=== PATIENT | female | born 1935 ===

== ENCOUNTER 2017-02-23 06:13 | Day surgery (SDC) | payer MEDICARE, MEDICAID ==
[2017-02-16 09:15] VITALS: BMI 27.3
[2017-02-23] MEDS ORDERED: Propofol 10 mg/ml Inj (20 ML) ONE (09:35)
[2017-02-23] MEDS ORDERED: Bupivacaine-Epi 0.25%-1:200,000 PF Inj ONE (09:51)
[2017-02-23] MEDS ORDERED: Lidocaine 1% Inj (20ml) ONE (09:52)
[2017-02-23] MEDS ORDERED: HEPARIN-NS 5,000 UNITS/500 ML 5,000 UNIT/500 ML BAG IV ONE (09:52)
[2017-02-23] MEDS ORDERED: ceFAZolin IV 2 gm in Dextrose 1 GM/50 ML BAG IVPB ONE (09:52)
[2017-02-23] MEDS ORDERED: Sodium Chloride 0.9% 20 ML IV ONE (09:53)
[2017-02-23] MEDS ORDERED: Lactated Ringer's 1,000 ML IV ONE ×2 (10:05→13:27)
[2017-02-23] MEDS ORDERED: Succinylcholine Chloride 20 mg/ml Syr (5 ml) IV ONE (10:10)
[2017-02-23] MEDS ORDERED: Methylene Blue 10 mg/mL(10ml) IV ONE (11:31)
[2017-02-23] MEDS ORDERED: Bupivacaine HCl 0.5% PF (10 ml) Inj ONE (13:19)
[2017-02-23] MEDS ORDERED: Neostigmine Methylsulfate 3mg/3ml Syringe IV ONE (13:22)
--- NOTE | 2017-02-23 13:57 | MAM ---
PROCEDURE: RIGHT BREAST NEEDLE NEEDLE LOCALIZATION, MAMMOGRAPHIC GUIDED HISTORY: RIGHT BREAST NEEDLE LOCALIZATION COMPARISON: Posts ultrasound guided biopsy mammogram 01/24/2017 TECHNIQUE: At mammography, the patient's was given full discussion of risks and benefits of the procedure through a electro optics engineer and subsequent freely gave written consent. FINDINGS: Lateral approach was selected. Patient's placed under compression centering the lesion in question in the center of the created successfully with the surgical clip identified from prior biopsy. Maximum sterile barrier protection was provided to the patient with 1 percent lidocaine utilized for local anesthesia. Under mammographic guidance, the groupings utilized to deploy a a modified Kopan's needle wire into least and lesion in question within a loop move deploying the wire in good apparent position next to the biopsy clip. Post confirmation mammograms confirmed good placement of the wire. Patient tolerated this procedure well and no complications occurred. Post lumpectomy specimen reveals the wire and surgical clip in the center volume of the tissue with adequate margins provided. IMPRESSION: Status post successful right breast needle localization procedure with post lumpectomy specimen radiograph described as above.
--- NOTE | 2017-02-23 14:00 | PCM.SURG1 ---
Surgeon's Initial Post Op Note - Surgeon's Notes Surgeon: Dr. Miguel Strategic Analyst: Dr. Johnston PGY-3, Reji Mcclellan OMS-III Type of Anesthesia: General Endo, Local Pre-Operative Diagnosis: Right breast cancer Operative Findings: placement confirmed via C-arm Post-Operative Diagnosis: Right breast cancer Operation Performed: 1) Right breast partial mastectomy. 2) Right [place] lymph node biopsy. 3) Left IJ Portacath placement Specimen/Specimens Removed: right breast mass. right sentinel node Estimated Blood Loss: EBL {In ML}: 30 Blood Products Given: N/A Drains Used: No Drains Post-Op Condition: Good Date of Surgery/Procedure: 02/23/17 Time of Surgery/Procedure: 10:00
[2017-02-23] MEDS: HYDROmorphone 0.5 mg/0.5 ml ISec IVP PRN ×2 (14:10→14:30)
--- NOTE | 2017-02-23 15:31 | RAD ---
HISTORY: s/p L IJ permacath COMPARISON: Chest radiographs 02/02/2017. FINDINGS: LUNGS: Single frontal view the chest and submitted and reveals interval total left central venous port placement with tip terminating at the junction of the left brachycephalic vein with superior vena cava. No pneumothorax is identified bilaterally. No infiltrate bilaterally. Linear atelectasis identified in the medial left lung base as well as a hiatal hernia PLEURA: As above CARDIOVASCULAR: Stable cardiac silhouette is identified. OSSEOUS STRUCTURES: No significant abnormalities. VISUALIZED UPPER ABDOMEN: Normal. OTHER FINDINGS: None. IMPRESSION: Linear atelectasis or fibrosis in the medial left base with hiatal hernia evident. Status post left chest port placement as described above. No pneumothorax bilaterally.
[2017-02-23 15:55] VITALS: BP 185/92; PULSE 82; RESP 18; TEMP 97; O2SAT 100
--- NOTE | 2017-02-23 21:17 | OP ---
PROCEDURE DATE: 02/23/2017 PREOPERATIVE DIAGNOSIS: Right breast cancer. POSTOPERATIVE DIAGNOSIS: Right breast cancer of upper and outer quadrant. PROCEDURES DONE: 1. Preoperative needle localization and right partial mastectomy. 2. Axillary-sentinel lymph node biopsy. 3. Left IJ Port-A-Cath insertion. 4. Ultrasound-guided venous access. 5. Intraoperative fluoroscopy. SURGEON: Jamey Miguel MD ASSISTANTS: MARY Lopes and Marsha Johnston, PGY-3 resident. TYPE OF ANESTHESIA: General endotracheal tube anesthesia. ESTIMATED BLOOD LOSS: Around 40 mL for both procedures. COMPLICATIONS: None. DRAIN: None. INTRAOPERATIVE FINDINGS: The patient had 1.5 cm right breast tumor at 10 o'clock position and the patient had a negative axillary-sentinel lymph node biopsy and on ultrasound of the neck, the patient had a patent left IJ. On intraoperative steps, this is a 81-year-old female who was diagnosed with right breast cancer and the patient was seen by oncologist and sent for surgical evaluation and the patient was consented for preop needle localization and right breast lumpectomy and sentinel lymph node biopsy and Port-A-Cath insertion. DESCRIPTION OF PROCEDURE: The patient was brought to the OR, placed supine on operating table. After induction of anesthesia, first both neck was prepped and draped in the usual sterile fashion and under ultrasound guidance, the left IJ venous access was done. The guidewire was placed and the left infraclavicular incision was made to create the pouch and the catheter was tunneled from the pouch up to the left IJ insertion site. The catheter was introduced into the dilator sheath and the intraoperative fluoroscopy confirmation was done to check the site of the catheter position, and after that, the catheter was connected to the port. Port was accessed intraoperatively, was functioning without any blockage and after that, the wound was closed, subQ with 2-0 Vicryl, skin with 4-0 Monocryl and the left IJ incision site was also closed with 4-0 Monocryl and dry sterile dressing was applied. Now, the right breast was prepped and draped in the usual sterile fashion and methylene blue was injected and the right axillary incision was made and incision was deepened through the skin, subcutaneous tissue and the clavipectoral fascia and the sentinel lymph node was identified and sentinel lymph node was sent for the pathology. Intraoperative confirmation was taken for negative lymph nodes and now, a transverse incision was made on the right outer breast and incising skin and subcutaneous tissue, upper and lower flaps were created. Medial and lateral flaps were also created and dissection was carried down beyond the nipple and the dissection was carried down superiorly up to the clavicle, inferiorly dissection was carried down up to the costal margin and laterally to the pectoral muscles and the whole specimen of the right outer side of the breast was dissected free from the underlying pectoral fascia and it was sent off the table for the pathology. Intraoperative confirmation of the proper dissection of the breast lump with the needle was done. The axillary wound as well as breast wound was irrigated and both the wounds were closed in 2 layers, subQ with the 2-0 Vicryl, skin with the 4-0 Monocryl and dry sterile dressing was applied. The patient tolerated the procedure well. Count of the instruments and gauze was correct. There was no apparent complication. The patient was sent to the postanesthesia care unit in stable condition. Jamey Miguel MD MTDGavino
--- NOTE | 2017-02-25 09:24 | RAD ---
INTRAOPERATIVE FLUOROSCOPY: Intraoperative fluoroscopy was provided to the referring physician to assist in placement of MediPort catheter which is identified terminating in the distal superior vena cava and a solitary spot fluoroscopic image spine apparent left internal jugular approach. 115.1 seconds of fluoroscopy time was utilized with a with a cumulative radiation dose of 0.423 mGy. Please see operative report for further detail. IMPRESSION: Please see operative report further detail.
== END 2017-02-23 17:10 | disposition home or self-care (01) ==
LOC: C.SDS 06:13
PROVIDERS: ATTEND Surgery Surgical Critical Care
DX: C50.919 Malignant neoplasm of unspecified site of unspecified female breast (principal); C50.411 Malignant neoplasm of upper-outer quadrant of right female breast
CPT/HCPCS: 19281; 19301; 36561; 38525; 71010; 76937; 77001; 88305; 88307; 88331; C1769; C1788; J0690; J1100; J1170; J1644; J2001; J2405; J2704; J2710; J3010; J7040; J7120

== ENCOUNTER 2017-03-17 15:46 | Emergency (ER) | payer MEDICARE, MEDICAID ==
[2017-03-17 15:46] VITALS: BMI 27.3
[2017-03-17 15:58] VITALS: BP 145/79; PULSE 85; RESP 16; TEMP 99.4; O2SAT 97
--- NOTE | 2017-03-17 16:09 | C.PDOC ---
History Of Present Illness Patient is a 81 y/o F with hx of lumpectomy on 02/23 for breast cancer, who developed infection to wound site, started on antibiotics after I&D performed in Dr. Miguel's office yesterday presenting for dressing change. Patient was told by to come to ED daily for dressing changes by fixed income trading vice president until he evaluated patient again on Monday. Patient denies fever. Reports some localized pain to surgical site but denies new complaints. Time Seen by Provider: 03/17/17 16:00 Chief Complaint (Nursing): Abnormal Skin Integrity Past Medical History Vital Signs: Last Vital Signs Temp 99.4 F 03/17/17 15:54 Pulse 85 03/17/17 15:54 Resp 16 03/17/17 15:54 BP 145/79 03/17/17 15:54 Pulse Ox 97 03/17/17 16:10 - Medical History PMH: Arthritis, Asthma, COPD, Gall Bladder Disease, HTN Denies: Chronic Kidney Disease Surgical History: Cholecystectomy - [facility] Procedures LEFT HEART CARDIAC CATH (06/02/14) LT HEART ANGIOCARDIOGRAM (06/02/14) Family History: States: Unknown Family Hx - Social History Hx Tobacco Use: No Hx Alcohol Use: No Hx Substance Use: No - Immunization History Hx Tetanus Toxoid Vaccination: No Hx Influenza Vaccination: Yes Hx Pneumococcal Vaccination: Yes Review Of Systems Constitutional: Negative for: Fever, Chills Cardiovascular: Negative for: Chest Pain, Palpitations, Orthopnea, Edema, Light Headedness Respiratory: Negative for: Cough Gastrointestinal: Negative for: Nausea, Vomiting, Abdominal Pain, Constipation Genitourinary: Negative for: Dysuria Skin: Positive for: Other (wound to R breast) Neurological: Negative for: Weakness, Numbness, Altered Mental Status, Headache Physical Exam - Physical Exam Appears: Well, Non-toxic, No Acute Distress Skin: Normal Color, Warm, Dry Head: Atraumatic, Normacephalic Eye(s): bilateral: Normal Inspection, PERRL, EOMI Neck: Supple Chest: Other (surgical dressing to R breast, wound with packing with clean edges ) Cardiovascular: Rhythm Regular Respiratory: Normal Breath Sounds Gastrointestinal/Abdominal: Soft, No Tenderness Extremity: Normal ROM ED Course And Treatment O2 Sat by Pulse Oximetry: 97 Medical Decision Making Medical Decision Making: Spoke to fixed income trading vice president who will do dressing change 4:30PM vice president planning changed dressing and taught patient how to change dressing. Will follow-up with surgeon. Disposition - Disposition Disposition: HOME/ ROUTINE Disposition Time: 16:31 Condition: GOOD Additional Instructions: Dressing needs to be changed daily. Follow-up with your surgeon on Monday morning. Take antibiotics as prescribed. Return to ED if condition worsens. Forms: [employer] (Icelandic) - Clinical Impression Clinical Impression: Dressing change or removal, surgical wound
== END 2017-03-17 16:57 | disposition home or self-care (01) ==
LOC: C.ER 15:46
DX: Z48.00 Encounter for change or removal of nonsurgical wound dressing (principal); I10 Essential (primary) hypertension; J44.9 Chronic obstructive pulmonary disease, unspecified

== ENCOUNTER 2017-06-02 08:38 | Inpatient (IN) | payer MEDICARE, MEDICAID ==
[2017-06-02 08:39] VITALS: BMI 27.3
--- NOTE | 2017-06-02 09:07 | C.PDOC ---
History Of Present Illness 81 year old female, with past medical history of breast CA on chemotherapy, presents to ED for evaluation of bloody stool since last night. Patient reports feeling lightheaded and generalized weakness. Patient admits to having decreased appetite this week. Denies abdominal pain, nausea, vomiting, rectal pain, shortness of breath, chest pain, or fever. Notes last chemo was on Monday. Oncology: Dr Kasper Time Seen by Provider: 06/02/17 08:56 Chief Complaint (Nursing): GI Problem History Per: Patient History/Exam Limitations: no limitations Onset/Duration Of Symptoms: Days (1) Current Symptoms Are (Timing): Still Present Number Of Bleeding Episodes: Unknown Severity: None Pain Scale Rating Of: 0 Associated Symptoms: Bloody Diarrhea, Lightheadedness. denies: Nausea, Vomiting , Hematemesis Modifying Factors: None Recent travel outside of the [place]: No Additional History Per: Patient Past Medical History Reviewed: Historical Data, Nursing Documentation, Vital Signs Vital Signs: Last Vital Signs Temp 98.5 F 06/02/17 12:51 Pulse 85 06/02/17 13:47 Resp 18 06/02/17 13:47 BP 117/48 L 06/02/17 13:47 Pulse Ox 99 06/02/17 13:47 - Medical History PMH: Arthritis, Asthma, COPD, Gall Bladder Disease, HTN Denies: Chronic Kidney Disease Surgical History: Cholecystectomy - [facility] Procedures LEFT HEART CARDIAC CATH (06/02/14) LT HEART ANGIOCARDIOGRAM (06/02/14) Family History: States: Unknown Family Hx - Social History Hx Tobacco Use: No Hx Alcohol Use: No Hx Substance Use: No - Immunization History Hx Tetanus Toxoid Vaccination: (unk) Hx Influenza Vaccination: Yes (2017) Hx Pneumococcal Vaccination: Yes (2016) Review Of Systems Except As Marked, All Systems Reviewed And Found Negative. Constitutional: Positive for: Weakness. Negative for: Fever, Chills Cardiovascular: Positive for: Light Headedness. Negative for: Chest Pain, Palpitations Respiratory: Negative for: Shortness of Breath Gastrointestinal: Positive for: Hematochezia. Negative for: Nausea, Vomiting, Abdominal Pain, Hematemesis, Rectal Pain Genitourinary: Negative for: Dysuria, Frequency Musculoskeletal: Negative for: Back Pain Neurological: Negative for: Headache, Dizziness Physical Exam - Physical Exam Appears: Non-toxic, No Acute Distress Skin: Normal Color, Warm, Dry Head: Atraumatic, Normacephalic Eye(s): bilateral: Normal Inspection Oral Mucosa: Moist Neck: Normal ROM, Supple Chest: Other (right partial mastectomy) Cardiovascular: Rhythm Regular, No Murmur Respiratory: Normal Breath Sounds, No Rales, No Rhonchi, No Wheezing Gastrointestinal/Abdominal: Soft, No Tenderness Rectal: Rectal Tone (normal), Heme Positive (bloody stool), No Hemorrhoids, No Mass, No Tenderness Back: No CVA Tenderness Extremity: Normal ROM, No Deformity, No Swelling Pulses: Left Radial: Normal Neurological/Psych: Oriented x3, Normal Speech ED Course And Treatment - Laboratory Results Result Diagrams: 06/02/17 09:32 06/02/17 09:32 Lab Interpretation: No Acute Changes ECG: Interpreted By Me, Viewed By Me ECG Rhythm: Sinus Rhythm ECG Interpretation: No Acute Changes Interpretation Of ECG: NS at 90 bpm with LAD and twave abnormality Rate From EC O2 Sat by Pulse Oximetry: 99 Pulse Ox Interpretation: Normal Medical Decision Making Medical Decision Making: Impression: GI bleed Plan: * EKG * Chest x-ray * Blood work * Urinalysis * Protonix Progress: EKG NS at 90 bpm with LAD, Twave abnormality nonspecific Labs reviewed, Hgb is low and no priors to compare. 10:12 Called and spoke with Dr Braga to discuss case and lab findings. He states her Hgb is usually normal, last result 01/03/17 Hgb was 10.8. He wants patient admitted and to order 1PRBC for transfusion Disposition - Disposition Disposition: HOSPITALIZED Disposition Time: 10:14 Condition: FAIR - POA Present On Arrival: None - Clinical Impression Clinical Impression: GI (gastrointestinal bleed) - PA / FARM EQUIPMENT MECHANIC APPRENTICE / Resident Statement MD/DO has reviewed & agrees with the documentation as recorded. - Scribe Statement The provider has reviewed the documentation as recorded by the Scribe Antonio Bryant All medical record entries made by the Yolandaibkim were at my direction and personally dictated by me. I have reviewed the chart and agree that the record accurately reflects my personal performance of the history, physical exam, medical decision making, and the department course for this patient. I have also personally directed, reviewed, and agree with the discharge instructions and disposition. Decision To Admit - Pt Status Changed To: Hospital Disposition Of: Inpatient - Admit Certification Admit to Inpatient:: After my assessment, the patient will require hospitalization for at least two midnights. This is because of the severity of symptoms shown, intensity of services needed, and/or the medical risk in this patient being treated as an outpatient. - InPatient: Physician Admission Certification: I certify that this patient requires 2 or more midnights of care for the following reason:: Patient with active GI bleed and low hgb. Patient will need transfusion and GI consult - . Bed Request Type: Telemetry Admitting Physician: Clyde Braga Patient Diagnosis: GI (gastrointestinal bleed)
[2017-06-02] MEDS ORDERED: Lactated Ringer's 1,000 ML IV STA (09:09)
[2017-06-02] MEDS ORDERED: Pantoprazole 80 MG in Sodium Chloride 0.9% 100 ML IV STA (09:09)
[2017-06-02 09:38] LABS: BASO % 0.5 % (0.0-2.0); EOS % 0.7 % (0.0-4.0); HEMATOCRIT 23.1 % (34.0-47.0); LYMPH # 0.6 K/uL (1.0-4.3); LYMPH % 15.3 % (20.0-40.0); MEAN CORPUSCULAR HEMOGLOBIN 27.5 pg (27.0-31.0); MEAN CORPUSCULAR HGB CONC 33.6 g/dL (33.0-37.0); MEAN PLATELET VOLUME 8.3 fL (7.2-11.7); MONO # 0.1 K/uL (0.0-0.8); NRBC % 0.3 % (0.0-2.0); RED CELL DISTRIBUTION WIDTH 15.6 % (11.5-14.5); WHITE BLOOD COUNT 3.9 K/uL (4.8-10.8)
[2017-06-02 09:44] LABS: INR 1.1
[2017-06-02 09:51] LABS: ALKALINE PHOSPHATASE 49 U/L (38-126); ALT/SGPT 33 U/L (9-52); AST/SGOT 16 U/L (14-36); BILIRUBIN,TOTAL 0.6 mg/dL (0.2-1.3); BLOOD UREA NITROGEN 11 mg/dL (7-17); CALCIUM 8.2 mg/dl (8.6-10.4); CARBON DIOXIDE 25 mmol/L (22-30); CHLORIDE 105 mmol/L (98-107); GFR AFRICAN-AMERICAN > 60; GLUCOSE,RANDOM 116 mg/dL (65-105); POTASSIUM 3.3 mmol/L (3.6-5.2); SODIUM 141 mmol/L (132-148); TOTAL PROTEIN 6.1 g/dL (6.3-8.3)
[2017-06-02 09:54] LABS: RBC URINE < 1 /hpf (0-3); URINE BACTERIA RARE (<OCC); URINE BILIRUBIN NEGATIVE (NEGATIVE); URINE BLOOD NEGATIVE (NEGATIVE); URINE COLOR Yellow (YELLOW); URINE GLUCOSE (UA) NORMAL (Normal); URINE KETONE NEGATIVE (NEGATIVE); URINE LEUKOCYTE ESTERASE TRACE Leu/uL (Negative); URINE PROTEIN NEGATIVE (NEGATIVE); URINE UROBILINOGEN NORMAL mg/dL (0.2-1.0); WBC URINE 2 /hpf (0-5)
[2017-06-02 09:57] LABS: ALB/GLOB RATIO 1.4 (1.0-2.1)
--- NOTE | 2017-06-02 10:07 | RAD ---
PROCEDURE: CHEST RADIOGRAPH, 1 VIEW HISTORY: GI Bleeding COMPARISON: 02/23/2017. FINDINGS: The left-sided MediPort terminates in the SVC. LUNGS: The lungs are well inflated and clear. PLEURA: No pneumothorax or pleural fluid seen. CARDIOVASCULAR: The cardiomediastinal silhouette is stable. OSSEOUS STRUCTURES: No significant abnormalities. VISUALIZED UPPER ABDOMEN: Normal. OTHER FINDINGS: None. IMPRESSION: No acute findings.
[2017-06-02] MEDS ORDERED: Potassium Chloride 20 mEq ER Tab PO STA (11:51)
[2017-06-02] MEDS ORDERED: Potassium Chloride 20 mEq ER Tab PO ONE (11:56)
[2017-06-02 12:06] LABS: CARCINOEMBRYONIC ANTIGEN 2.6 ng/mL (0-3.0)
[2017-06-02 12:10] LABS: CA 19-9 < 1.4 U/mL (0-37)
[2017-06-02] MEDS ORDERED: Dextrose 5%/0.45% NS 1,000 ML IV ONE (12:22)
[2017-06-02] MEDS: Dextrose 5%/0.45% NS 1,000 ML IV SCH (12:30)
[2017-06-02] MEDS ORDERED: Peg-Electrolyte Oral Soln 4L (Golytely) PO ONE (13:00)
[2017-06-02] MEDS ORDERED: Dorzolamide 2% Opht Sol 10ml OU SCH (14:00)
[2017-06-02] MEDS ORDERED: Albuterol 0.083% Inhal Sol (2.5 mg/3 mL) UD ONE (14:04)
[2017-06-02] MEDS: Albuterol 0.083% Inhal Sol (2.5 mg/3 mL) UD INH SCH ×2 (14:28→19:54)
[2017-06-02] MEDS ORDERED: Bisacodyl 5mg EC Tab PO ONE (17:00)
[2017-06-02] MEDS ORDERED: Sodium Chloride 0.9% 1,000 ML IV SCH (19:30)
[2017-06-02] MEDS: Fluticasone-Salmeterol 250-50mcg Diskus IH SCH (19:54)
[2017-06-02 20:53] LABS: BASO % 0.6 % (0.0-2.0); EOS # 0.1 K/uL (0.0-0.7); EOS % 0.8 % (0.0-4.0); HEMATOCRIT 28.1 % (34.0-47.0); LYMPH # 1.2 K/uL (1.0-4.3); MEAN CELL VOLUME 82.1 fL (81.0-99.0); MEAN CORPUSCULAR HEMOGLOBIN 27.3 pg (27.0-31.0); MEAN CORPUSCULAR HGB CONC 33.2 g/dL (33.0-37.0); MEAN PLATELET VOLUME 8.5 fL (7.2-11.7); MONO # 0.2 K/uL (0.0-0.8); MONO % 3.4 % (0.0-10.0); NRBC % 0.2 % (0.0-2.0); RED CELL DISTRIBUTION WIDTH 15.2 % (11.5-14.5); WHITE BLOOD COUNT 6.3 K/uL (4.8-10.8)
--- NOTE | 2017-06-02 23:18 | CP.PCM.HP ---
History of Present Illness - History of Present Illness History of Present Illness: 81 year old female, with past medical history of breast CA on chemotherapy, presents to ED for evaluation of bloody stool since last night. Patient reports feeling lightheaded and generalized weakness. Patient admits to having decreased appetite this week. Denies abdominal pain, nausea, vomiting, rectal pain, shortness of breath, chest pain, or fever. Notes last chemo was on Monday. Past Patient History - Past Medical History & Family History Past Medical History?: Yes - Past Social History Smoking Status: Never Smoked - CARDIAC Hx Cardiac Disorders: Yes Hx Hypertension: Yes - PULMONARY Hx Respiratory Disorders: Yes Hx Asthma: Yes Hx Chronic Obstructive Pulmonary Disease (COPD): Yes - NEUROLOGICAL Hx Neurological Disorder: No - HEENT Hx HEENT Problems: Yes Hx Cataracts: Yes (BILAT IOL) Hx Glaucoma: Yes - RENAL Hx Chronic Kidney Disease: No - ENDOCRINE/METABOLIC Hx Endocrine Disorders: No - HEMATOLOGICAL/ONCOLOGICAL Hx Blood Disorders: No Hx Cancer: Yes (R breast Ca) - INTEGUMENTARY Hx Dermatological Problems: No - MUSCULOSKELETAL/RHEUMATOLOGICAL Hx Musculoskeletal Disorders: Yes Hx Arthritis: Yes Hx Falls: Yes (December 2016) - GASTROINTESTINAL Hx Gastrointestinal Disorders: Yes Hx Gall Bladder Disease: Yes - GENITOURINARY/GYNECOLOGICAL Hx Genitourinary Disorders: No - PSYCHIATRIC Hx Substance Use: No - SURGICAL HISTORY Hx Surgeries: Yes Hx Cholecystectomy: Yes - ANESTHESIA Hx Anesthesia: Yes Hx Anesthesia Reactions: No Hx Malignant Hyperthermia: No Meds Allergies/Adverse Reactions: Allergies Allergy/AdvReac Type Severity Reaction Status Date / Time aspirin Allergy Intermediate RASH Verified 06/02/17 08:47 Results - Vital Signs Recent Vital Signs: Last Vital Signs Temp 98.6 F 06/02/17 15:28 Pulse 92 H 06/02/17 15:28 Resp 20 06/02/17 15:28 BP 130/66 06/02/17 15:28 Pulse Ox 99 06/02/17 15:28 - Labs Result Diagrams: 06/02/17 20:45 06/02/17 09:32 Labs: Laboratory Results - last 24 hr 06/02/17 06/02/17 06/02/17 09:32 09:32 09:32 WBC 3.9 L RBC 2.82 L Hgb 7.8 L Hct 23.1 L MCV 82.0 MCH 27.5 MCHC 33.6 RDW 15.6 H Plt Count 235 MPV 8.3 Neut % (Auto) 80.5 H Lymph % (Auto) 15.3 L Ralls % (Auto) 3.0 Eos % (Auto) 0.7 Baso % (Auto) 0.5 Neut # 3.1 Lymph # 0.6 L Ralls # 0.1 Eos # 0.0 Baso # 0.0 PT 12.2 INR 1.1 APTT 27 Sodium Potassium Chloride Carbon Dioxide Anion Gap BUN Creatinine Est GFR ( Amer) Est GFR (Non-Af Amer) Random Glucose Calcium Total Bilirubin AST ALT Alkaline Phosphatase Total Protein Albumin Globulin Albumin/Globulin Ratio Carcinoembryonic Ag CA 19-9 Antigen CA 125 Antigen Urine Color Urine Clarity Urine pH Ur Specific [place] Urine Protein Urine Glucose (UA) Urine Ketones Urine Blood Urine Nitrate Urine Bilirubin Urine Urobilinogen Ur Leukocyte Esterase Urine WBC (Auto) Urine RBC (Auto) Ur Squamous Epith Cells Urine Bacteria Stool Occult Blood Positive H Blood Type Blood Type Confirm Antibody Screen 06/02/17 06/02/17 06/02/17 09:32 09:42 10:27 WBC RBC Hgb Hct MCV MCH MCHC RDW Plt Count MPV Neut % (Auto) Lymph % (Auto) Ralls % (Auto) Eos % (Auto) Baso % (Auto) Neut # Lymph # Ralls # Eos # Baso # PT INR APTT Sodium 141 Potassium 3.3 L Chloride 105 Carbon Dioxide 25 Anion Gap 14 BUN 11 Creatinine 0.5 L Est GFR ( Amer) > 60 Est GFR (Non-Af Amer) > 60 Random Glucose 116 H Calcium 8.2 L Total Bilirubin 0.6 AST 16 ALT 33 Alkaline Phosphatase 49 Total Protein 6.1 L Albumin 3.6 Globulin 2.5 Albumin/Globulin Ratio 1.4 Carcinoembryonic Ag CA 19-9 Antigen CA 125 Antigen Urine Color Yellow Urine Clarity Clear Urine pH 7.0 Ur Specific [place] 1.013 Urine Protein Negative Urine Glucose (UA) Normal Urine Ketones Negative Urine Blood Negative Urine Nitrate Negative Urine Bilirubin Negative Urine Urobilinogen Normal Ur Leukocyte Esterase Trace Urine WBC (Auto) 2 Urine RBC (Auto) < 1 Ur Squamous Epith Cells 3 Urine Bacteria Rare Stool Occult Blood Blood Type A POSITIVE Blood Type Confirm A POSITIVE Antibody Screen Negative 06/02/17 06/02/17 11:16 20:45 WBC 6.3 D RBC 3.42 L Hgb 9.3 L Hct 28.1 L MCV 82.1 MCH 27.3 MCHC 33.2 RDW 15.2 H Plt Count 261 MPV 8.5 Neut % (Auto) 76.2 H Lymph % (Auto) 19.0 L Ralls % (Auto) 3.4 Eos % (Auto) 0.8 Baso % (Auto) 0.6 Neut # 4.8 Lymph # 1.2 Ralls # 0.2 Eos # 0.1 Baso # 0.0 PT INR APTT Sodium Potassium Chloride Carbon Dioxide Anion Gap BUN Creatinine Est GFR ( Amer) Est GFR (Non-Af Amer) Random Glucose Calcium Total Bilirubin AST ALT Alkaline Phosphatase Total Protein Albumin Globulin Albumin/Globulin Ratio Carcinoembryonic Ag 2.6 CA 19-9 Antigen < 1.4 CA 125 Antigen < 5.5 Urine Color Urine Clarity Urine pH Ur Specific [place] Urine Protein Urine Glucose (UA) Urine Ketones Urine Blood Urine Nitrate Urine Bilirubin Urine Urobilinogen Ur Leukocyte Esterase Urine WBC (Auto) Urine RBC (Auto) Ur Squamous Epith Cells Urine Bacteria Stool Occult Blood Blood Type Blood Type Confirm Antibody Screen
[2017-06-03] MEDS: Dextrose 5%/0.45% NS 1,000 ML IV SCH ×2 (01:03→15:30)
[2017-06-03] MEDS: Albuterol 0.083% Inhal Sol (2.5 mg/3 mL) UD INH SCH ×4 (01:38→19:32)
--- NOTE | 2017-06-03 04:30 | CON ---
DATE: 06/02/2017 HISTORY OF PRESENT ILLNESS: This is a 81-year-old female seen and examined on 06/02/2017 in the Emergency Room as requested by the admitting medical team. The entire chart is reviewed including but not limited to the most recent lab and radiology study results, current and the previous medication list, current and the previous medical events, allergy to medication list as well as all the available current and the previous medical records. Case discussed at length with the staff in the Emergency Room. This is a 81-year-old female who was admitted to the hospital through the Emergency Room with the main complaint of generalized weakness and fatigue, lightheaded, loss of appetite with a recent positive weight loss with recurrent episodes of rectal bleeding. No hematemesis. Patient also admitted recurrent episodes of bloody diarrhea recently without hematemesis, but again nausea with dyspepsia. PAST MEDICAL HISTORY: Including, but not limited to: 1. Osteoarthritis. 2. COPD. 3. Hypertension. 4. Peptic ulcer disease. 5. Status post cholecystectomy. FAMILY HISTORY: Noncontributory. SOCIAL HISTORY: No reported history of cigarette smoking or alcohol intake. CURRENT MEDICATIONS: Medication lists were reviewed. ALLERGIES TO MEDICATION: UNCLEAR. After being admitted to the hospital, patient was found to have initially low hemoglobin at 7.8, hematocrit 23.1 with low white blood cells of 3.9, but normal platelet count with low potassium 3.3 and increased blood glucose level at 116. PHYSICAL EXAMINATION: GENERAL: A 81-year-old female, Bulgarian spoken, seen also with a college athletic director. VITAL SIGNS: Afebrile with pulse of 100, respiratory 20 to 22, blood pressure 150/78. HEENT: Showed pale, dry oral mucous membrane. Nonicteric sclerae. LYMPH NODES: No lymphadenitis or lymphadenopathy. LUNGS: Few scattered mild crepitation with few rales bilaterally and slight decreased air entry at bases. HEART: Positive S1 and S2 with increased rate. ABDOMEN: Soft with mild distention and mild generalized tenderness. No mass or organomegaly. No rebound tenderness or guarding. RECTAL: Positive stool with trace of old and fresh blood. EXTREMITIES: Without significant clubbing, cyanosis, or edema, but evidence of osteoarthritis. NEUROLOGIC: No reported new neurological deficits, sensory or motor. IMPRESSION: 1. Gastrointestinal bleeding, upper versus lower. 2. To rule out occult gastrointestinal malignancy. 3. Anemia, most likely secondary to above. 4. Known history of but not limited to chronic obstructive pulmonary disease, osteoarthritis, hypertension who is status post cholecystectomy. 5. Electrolyte imbalance with hypokalemia. SUGGESTIONS: 1. Agree with your plan. 2. Correct any underlying electrolyte imbalance. 3. Blood transfusion to keep hemoglobin around 10 gm percent. 4. Correct any underlying possible coagulopathy. 5. Proton pump inhibitors IV. 6. Surgical consultation. 7. Sectional abdominal and pelvic CAT scan. 8. Endoscopic evaluation of the GI tract after adequate preparation when the patient is more stable clinically. Thank you for letting me participate in your patient's case management. Further recommendation to follow post upper and lower endoscopy. Mookie Franks MD
[2017-06-03 07:05] LABS: HEMATOCRIT 26.4 % (34.0-47.0); MEAN CELL VOLUME 81.7 fL (81.0-99.0); MEAN CORPUSCULAR HEMOGLOBIN 27.9 pg (27.0-31.0); MEAN CORPUSCULAR HGB CONC 34.2 g/dL (33.0-37.0); MEAN PLATELET VOLUME 8.2 fL (7.2-11.7); RED CELL DISTRIBUTION WIDTH 15.4 % (11.5-14.5); WHITE BLOOD COUNT 4.4 K/uL (4.8-10.8)
[2017-06-03] MEDS ORDERED: Lactated Ringer's 500 ML IV ONE ×4 (07:12→08:00)
[2017-06-03] MEDS ORDERED: Propofol 10 mg/ml Inj (20 ML) ONE (07:40)
[2017-06-03] MEDS ORDERED: Etomidate 20 mg/10ml Inj IV ONE (07:40)
[2017-06-03] MEDS: Fluticasone-Salmeterol 250-50mcg Diskus IH SCH (07:45)
[2017-06-03] MEDS: metroNIDAZOLE IV 500 mg/100 ml 500 MG/100 ML BAG IVPB SCH ×3 (08:00→22:46)
[2017-06-03 09:11] VITALS: RESP 20
[2017-06-03] MEDS ORDERED: Dorzolamide 2% Opht Sol 10ml OU SCH (10:00)
[2017-06-03] MEDS: Brimonidine 0.2% Opth Sol (5ml) OU SCH (10:30)
[2017-06-03] MEDS: Dorzolamide 2% Opht Sol 10ml OU SCH ×2 (14:00→18:30)
[2017-06-03] MEDS: Sucralfate 1 gm/10 ml Oral Susp UD PO SCH (22:45)
[2017-06-04] MEDS: Albuterol 0.083% Inhal Sol (2.5 mg/3 mL) UD INH SCH ×4 (02:00→19:49)
[2017-06-04] MEDS: Dextrose 5%/0.45% NS 1,000 ML IV SCH ×3 (06:10→19:06)
[2017-06-04] MEDS: metroNIDAZOLE IV 500 mg/100 ml 500 MG/100 ML BAG IVPB SCH ×3 (06:13→21:31)
[2017-06-04] MEDS: Sucralfate 1 gm/10 ml Oral Susp UD PO SCH ×2 (06:32→21:31)
[2017-06-04] MEDS: Fluticasone-Salmeterol 250-50mcg Diskus IH SCH ×2 (08:52→19:49)
[2017-06-04 09:28] LABS: MEAN CELL VOLUME 81.9 fL (81.0-99.0); MEAN CORPUSCULAR HGB CONC 34.2 g/dL (33.0-37.0); MEAN PLATELET VOLUME 8.2 fL (7.2-11.7); RED CELL DISTRIBUTION WIDTH 15.4 % (11.5-14.5); WHITE BLOOD COUNT 4.7 K/uL (4.8-10.8)
[2017-06-04] MEDS: Brimonidine 0.2% Opth Sol (5ml) OU SCH (09:29)
[2017-06-04] MEDS ORDERED: Influenza Vaccine 60 mcg/0.5 mL SYR (4YR UP) IM ONE (10:00)
[2017-06-04 10:23] LABS: CALCIUM 8.1 mg/dl (8.6-10.4); CARBON DIOXIDE 28 mmol/L (22-30); CHLORIDE 107 mmol/L (98-107); GFR AFRICAN-AMERICAN > 60; GLUCOSE,RANDOM 109 mg/dL (65-105); SODIUM 142 mmol/L (132-148)
[2017-06-04 10:32] LABS: BLOOD UREA NITROGEN 4 mg/dL (7-17)
--- NOTE | 2017-06-04 11:24 | CP.PCM.PN ---
Subjective - Date & Time of Evaluation Date of Evaluation: 06/03/17 Time of Evaluation: 21:00 - Subjective Subjective: Pt is seen and examined at bedside Objective - Vital Signs/Intake and Output Vital Signs (last 24 hours): Temp Pulse Resp BP Pulse Ox 97.4 F L 83 20 130/73 96 06/04/17 09:03 06/04/17 09:03 06/04/17 09:03 06/04/17 09:03 06/04/17 09:03 Intake and Output: 06/04/17 06/04/17 06:59 18:59 Intake Total 800 Balance 800 - Medications Medications: Current Medications Albuterol Sulfate (Albuterol 0.083% Inhal Teena (2.5 Mg/3 Ml) Ud) 2.5 mg INH RQ6 [facility] Last Admin: 06/04/17 08:53 Dose: Not Given Brimonidine Tartrate (Alphagan 0.2% Opht) 0 ml OU DAILY [facility] Last Admin: 06/04/17 09:29 Dose: 1 drop Carvedilol (Coreg) 3.125 mg PO DAILY [facility] Last Admin: 06/04/17 09:29 Dose: 3.125 mg Dorzolamide HCl (Trusopt) 0 ml OU TID [facility] Last Admin: 06/03/17 18:30 Dose: Not Given Dextrose/Sodium Chloride (Dextrose 5%/0.45% Ns 1000 Ml) 1,000 mls @ 70 mls/hr IV .[id number] [facility] Last Admin: 06/04/17 06:10 Dose: Not Given Metronidazole (Flagyl) 500 mg in 100 mls @ 100 mls/hr IVPB Q8 [facility] Last Admin: 06/04/17 06:13 Dose: 100 mls/hr Losartan Potassium (Cozaar) 25 mg PO DAILY [facility] Last Admin: 06/04/17 09:30 Dose: 25 mg Metoclopramide HCl (Reglan) 5 mg IVP Q6 [facility] Last Admin: 06/04/17 06:12 Dose: 5 mg Pantoprazole Sodium (Protonix Inj) 40 mg IVP Q12H [facility] Last Admin: 06/04/17 09:28 Dose: 40 mg Fluticasone/Salmeterol (Advair Diskus 250/50) 1 puff IH RBID [facility] Last Admin: 06/04/17 08:52 Dose: 1 puff Sucralfate (Carafate Oral Susp) 1 gm PO ACBHS [facility] Last Admin: 06/04/17 06:32 Dose: 1 gm Timolol Maleate (Timoptic 0.5% Ophth Soln) 0 drop OU BID [facility] Last Admin: 06/04/17 09:29 Dose: 1 drop - Labs Labs: 06/04/17 09:17 06/04/17 09:17 PT 12.2 SECONDS (9.7-12.2) 06/02/17 09:32 INR 1.1 06/02/17 09:32 APTT 27 SECONDS (21-34) 06/02/17 09:32 - Constitutional Appears: No Acute Distress - Head Exam Head Exam: ATRAUMATIC, NORMAL INSPECTION, NORMOCEPHALIC - Eye Exam Eye Exam: EOMI, Normal appearance, PERRL Pupil Exam: NORMAL ACCOMODATION, PERRL - Respiratory Exam Respiratory Exam: Clear to Ausculation Bilateral, NORMAL BREATHING PATTERN - Cardiovascular Exam Cardiovascular Exam: REGULAR RHYTHM, +S1, +S2. absent: Murmur - GI/Abdominal Exam GI & Abdominal Exam: Soft, Normal Bowel Sounds. absent: Tenderness Assessment and Plan (1) GI (gastrointestinal bleed) Status: Acute (2) Dressing change or removal, surgical wound Status: Acute (3) Forearm contusion Status: Acute (4) Periorbital contusion Status: Acute
--- NOTE | 2017-06-04 11:25 | CP.PCM.PN ---
Subjective - Date & Time of Evaluation Date of Evaluation: 06/04/17 Time of Evaluation: 18:00 - Subjective Subjective: Pt seen and evaluated at bedside, is feeling better Objective - Vital Signs/Intake and Output Vital Signs (last 24 hours): Temp Pulse Resp BP Pulse Ox 97.4 F L 83 20 130/73 96 06/04/17 09:03 06/04/17 09:03 06/04/17 09:03 06/04/17 09:03 06/04/17 09:03 Intake and Output: 06/04/17 06/04/17 06:59 18:59 Intake Total 800 Balance 800 - Medications Medications: Current Medications Albuterol Sulfate (Albuterol 0.083% Inhal Teena (2.5 Mg/3 Ml) Ud) 2.5 mg INH RQ6 [facility] Last Admin: 06/04/17 08:53 Dose: Not Given Brimonidine Tartrate (Alphagan 0.2% Opht) 0 ml OU DAILY [facility] Last Admin: 06/04/17 09:29 Dose: 1 drop Carvedilol (Coreg) 3.125 mg PO DAILY [facility] Last Admin: 06/04/17 09:29 Dose: 3.125 mg Dorzolamide HCl (Trusopt) 0 ml OU TID [facility] Last Admin: 06/03/17 18:30 Dose: Not Given Dextrose/Sodium Chloride (Dextrose 5%/0.45% Ns 1000 Ml) 1,000 mls @ 70 mls/hr IV .[id number] [facility] Last Admin: 06/04/17 06:10 Dose: Not Given Metronidazole (Flagyl) 500 mg in 100 mls @ 100 mls/hr IVPB Q8 [facility] Last Admin: 06/04/17 06:13 Dose: 100 mls/hr Losartan Potassium (Cozaar) 25 mg PO DAILY [facility] Last Admin: 06/04/17 09:30 Dose: 25 mg Metoclopramide HCl (Reglan) 5 mg IVP Q6 [facility] Last Admin: 06/04/17 06:12 Dose: 5 mg Pantoprazole Sodium (Protonix Inj) 40 mg IVP Q12H [facility] Last Admin: 06/04/17 09:28 Dose: 40 mg Fluticasone/Salmeterol (Advair Diskus 250/50) 1 puff IH RBID [facility] Last Admin: 06/04/17 08:52 Dose: 1 puff Sucralfate (Carafate Oral Susp) 1 gm PO ACBHS [facility] Last Admin: 06/04/17 06:32 Dose: 1 gm Timolol Maleate (Timoptic 0.5% Ophth Soln) 0 drop OU BID [facility] Last Admin: 06/04/17 09:29 Dose: 1 drop - Labs Labs: 06/04/17 09:17 06/04/17 09:17 PT 12.2 SECONDS (9.7-12.2) 06/02/17 09:32 INR 1.1 06/02/17 09:32 APTT 27 SECONDS (21-34) 06/02/17 09:32 Assessment and Plan (1) GI (gastrointestinal bleed) Status: Acute (2) Dressing change or removal, surgical wound Status: Acute (3) Forearm contusion Status: Acute (4) Periorbital contusion Status: Acute
[2017-06-04] MEDS: Potassium Chloride 20 mEq ER Tab PO SCH ×2 (12:48→16:44)
[2017-06-04] MEDS: Dorzolamide 2% Opht Sol 10ml OU SCH (18:16)
[2017-06-05] MEDS: Albuterol 0.083% Inhal Sol (2.5 mg/3 mL) UD INH SCH ×3 (01:51→14:19)
[2017-06-05] MEDS: metroNIDAZOLE IV 500 mg/100 ml 500 MG/100 ML BAG IVPB SCH ×2 (05:16→13:39)
[2017-06-05] MEDS: Sucralfate 1 gm/10 ml Oral Susp UD PO SCH (06:31)
[2017-06-05 08:02] LABS: MEAN CELL VOLUME 82.9 fL (81.0-99.0); MEAN CORPUSCULAR HEMOGLOBIN 27.9 pg (27.0-31.0); MEAN CORPUSCULAR HGB CONC 33.7 g/dL (33.0-37.0); MEAN PLATELET VOLUME 8.2 fL (7.2-11.7); RED CELL DISTRIBUTION WIDTH 15.9 % (11.5-14.5)
--- NOTE | 2017-06-05 08:32 | PN ---
DATE: LOCATION: [address] [place] [address] B. SUBJECTIVE: This is a 81-year-old female seen early in rounds today, without significant clinical changes or reported active bleeding post upper and lower endoscopy, tolerating oral intake well. The entire chart is reviewed including but not limited to the most recent lab and radiology study results, current and the previous medication list, current and the previous medical events. Case discussed with the staff at length. The last hemoglobin reported to be 9.3, hematocrit 26.4 as per yesterday; today's lab is still pending. PHYSICAL EXAMINATION: GENERAL: A 81-year-old female. VITAL SIGNS: Afebrile, with a pulse of 74, respiratory rate 20 to 22, blood pressure 120/66. HEENT: Showed pale dry oral mucous membrane. Nonicteric sclerae. LUNGS: Few scattered crepitation. Decreased air entry at bases. HEART: Positive S1 and S2. ABDOMEN: Soft. Bowel sounds are present with mild generalized tenderness. No mass or organomegaly. No rebound tenderness or guarding. EXTREMITIES: Without significant edema, clubbing, or cyanosis. NEUROLOGIC: No reported neurological deficits, sensory or motor. IMPRESSION: 1. Gastrointestinal bleeding. 2. Gastritis with duodenitis by upper endoscopy. 3. Diffuse diverticulosis with internal hemorrhoids by colonoscopy done yesterday. 4. Anemia, most likely secondary to above. 5. Known history of, but not limited to chronic obstructive pulmonary disease, osteoarthritis, hypertension, with status post cholecystectomy. SUGGESTIONS: 1. Continue current management. 2. Adjust oral intake. 3. Further recommendation to follow. Thank you for letting me participate in your patient's care management. Mookie Franks MD
[2017-06-05 09:06] LABS: BLOOD UREA NITROGEN 4 mg/dL (7-17); CARBON DIOXIDE 28 mmol/L (22-30); CHLORIDE 109 mmol/L (98-107); GFR AFRICAN-AMERICAN > 60; GLUCOSE,RANDOM 112 mg/dL (65-105); POTASSIUM 3.9 mmol/L (3.6-5.2); SODIUM 143 mmol/L (132-148)
[2017-06-05] MEDS: Brimonidine 0.2% Opth Sol (5ml) OU SCH (10:05)
[2017-06-05] MEDS: Dorzolamide 2% Opht Sol 10ml OU SCH ×4 (10:05→17:24)
[2017-06-05] MEDS: Dextrose 5%/0.45% NS 1,000 ML IV SCH (12:03)
--- NOTE | 2017-06-05 13:06 | PN ---
DATE: LOCATION: [address] [place] [address] B. SUBJECTIVE: This is a 81 years old female, seen early in rounds today without reported active bleeding, but with intermittent period of abdominal pain with postprandial abdominal distention. The entire chart is reviewed including but not limited to the most recent lab and radiology study results, current and the previous medication list, current and the previous medical events. Case discussed at length with the staff in the floor. Today's labs showed hemoglobin of 8.4 with drop of hematocrit to 25.0, but normal platelet count with low BUN and creatinine, but mildly elevated blood glucose level to 112 with low calcium 8.0. Repeat stool for occult blood was reported to be positive. PHYSICAL EXAMINATION: GENERAL: A 81 years old female. Awake, alert, oriented. VITAL SIGNS: Afebrile with pulse of 78, respiratory rate 20 to 22, blood pressure 128/78. HEENT: Showed pale dry oral mucous membrane. Nonicteric sclerae. LUNGS: Few scattered crepitation. Decreased air entry at bases. HEART: Positive S1 and S2. ABDOMEN: Soft. Bowel sounds are present with slight generalized tenderness. No mass or organomegaly. No rebound tenderness or guarding. NEUROLOGIC: No reported new neurological deficits, sensory or motor. IMPRESSION: 1. Gastrointestinal bleeding by recent history. 2. Duodenitis with gastritis. 3. Diffuse diverticulosis with internal hemorrhoids as well as left-sided colitis by recent colonoscopy. 4. Anemia secondary to above. 5. Known history of chronic obstructive pulmonary disease, osteoarthritis, status post cholecystectomy. SUGGESTION: 1. Continue current management. 2. Sectional abdominal and pelvic CAT scan. 3. Blood transfusion as needed to keep hemoglobin around 10 gram percent. 4. Further recommendation to follow. Mookie Franks MD
[2017-06-05 15:58] VITALS: BP 106/68; PULSE 76; TEMP 98.2; O2SAT 98
--- NOTE | 2017-06-05 22:24 | CP.PCM.DIS ---
Provider - Provider Date of Admission: 06/02/17 10:10 Attending physician: Clyde Braga MD Time Spent in preparation of Discharge (in minutes): 54 Diagnosis - Discharge Diagnosis (1) GI (gastrointestinal bleed) Status: Acute (2) Dressing change or removal, surgical wound Status: Acute (3) Forearm contusion Status: Acute (4) Periorbital contusion Status: Acute Hospital Course - Lab Results Lab Results: Most Recent Lab Values WBC 5.0 K/uL (4.8-10.8) 06/05/17 07:49 RBC 3.02 Mil/uL (3.80-5.20) L 06/05/17 07:49 Hgb 8.4 g/dL (11.0-16.0) L 06/05/17 07:49 Hct 25.0 % (34.0-47.0) L 06/05/17 07:49 MCV 82.9 fL (81.0-99.0) 06/05/17 07:49 MCH 27.9 pg (27.0-31.0) 06/05/17 07:49 MCHC 33.7 g/dL (33.0-37.0) 06/05/17 07:49 RDW 15.9 % (11.5-14.5) H 06/05/17 07:49 Plt Count 262 K/uL (130-400) 06/05/17 07:49 MPV 8.2 fL (7.2-11.7) 06/05/17 07:49 Neut % (Auto) 76.2 % (50.0-75.0) H 06/02/17 20:45 Lymph % (Auto) 19.0 % (20.0-40.0) L 06/02/17 20:45 [place]ila % (Auto) 3.4 % (0.0-10.0) 06/02/17 20:45 Eos % (Auto) 0.8 % (0.0-4.0) 06/02/17 20:45 Baso % (Auto) 0.6 % (0.0-2.0) 06/02/17 20:45 Neut # 4.8 K/uL (1.8-7.0) 06/02/17 20:45 Lymph # 1.2 K/uL (1.0-4.3) 06/02/17 20:45 Gila # 0.2 K/uL (0.0-0.8) 06/02/17 20:45 Eos # 0.1 K/uL (0.0-0.7) 06/02/17 20:45 Baso # 0.0 K/uL (0.0-0.2) 06/02/17 20:45 PT 12.2 SECONDS (9.7-12.2) 06/02/17 09:32 INR 1.1 06/02/17 09:32 APTT 27 SECONDS (21-34) 06/02/17 09:32 Sodium 143 mmol/L (132-148) 06/05/17 07:49 Potassium 3.9 mmol/L (3.6-5.2) 06/05/17 07:49 Chloride 109 mmol/L (98-107) H 06/05/17 07:49 Carbon Dioxide 28 mmol/L (22-30) 06/05/17 07:49 Anion Gap 11 (10-20) 06/05/17 07:49 BUN 4 mg/dL (7-17) L 06/05/17 07:49 Creatinine 0.6 mg/dL (0.7-1.2) L 06/05/17 07:49 Est GFR ( Amer) > 60 06/05/17 07:49 Est GFR (Non-Af Amer) > 60 06/05/17 07:49 Random Glucose 112 mg/dL (65-105) H 06/05/17 07:49 Calcium 8.0 mg/dl (8.6-10.4) L 06/05/17 07:49 Total Bilirubin 0.6 mg/dL (0.2-1.3) 06/02/17 09:32 AST 16 U/L (14-36) 06/02/17 09:32 ALT 33 U/L (9-52) 06/02/17 09:32 Alkaline Phosphatase 49 U/L (38-126) 06/02/17 09:32 Total Protein 6.1 g/dL (6.3-8.3) L 06/02/17 09:32 Albumin 3.6 g/dL (3.5-5.0) 06/02/17 09:32 Globulin 2.5 gm/dL (2.2-3.9) 06/02/17 09:32 Albumin/Globulin Ratio 1.4 (1.0-2.1) 06/02/17 09:32 Carcinoembryonic Ag 2.6 ng/mL (0-3.0) 06/02/17 11:16 CA 19-9 Antigen < 1.4 U/mL (0-37) 06/02/17 11:16 CA 125 Antigen < 5.5 U/mL (0-35) 06/02/17 11:16 Urine Color Yellow (YELLOW) 06/02/17 09:42 Urine Clarity Clear (Clear) 06/02/17 09:42 Urine pH 7.0 (5.0-8.0) 06/02/17 09:42 Ur Specific [place] 1.013 (1.003-1.030) 06/02/17 09:42 Urine Protein Negative mg/dL (NEGATIVE) 06/02/17 09:42 Urine Glucose (UA) Normal mg/dL (Normal) 06/02/17 09:42 Urine Ketones Negative mg/dL (NEGATIVE) 06/02/17 09:42 Urine Blood Negative (NEGATIVE) 06/02/17 09:42 Urine Nitrate Negative (NEGATIVE) 06/02/17 09:42 Urine Bilirubin Negative (NEGATIVE) 06/02/17 09:42 Urine Urobilinogen Normal mg/dL (0.2-1.0) 06/02/17 09:42 Ur Leukocyte Esterase Trace Nicki/uL (Negative) 06/02/17 09:42 Urine WBC (Auto) 2 /hpf (0-5) 06/02/17 09:42 Urine RBC (Auto) < 1 /hpf (0-3) 06/02/17 09:42 Ur Squamous Epith Cells 3 /hpf (0-5) 06/02/17 09:42 Urine Bacteria Rare (<OCC) 06/02/17 09:42 Stool Occult Blood Positive (NEGATIVE) H 06/02/17 09:32 Blood Type A POSITIVE 06/02/17 10:27 Blood Type Confirm A POSITIVE 06/02/17 10:27 Antibody Screen Negative 06/02/17 10:27 - Hospital Course Hospital Course: Pt is for discharge, denies any chest pain, GI bleed resolved Discharge Exam - Head Exam Head Exam: ATRAUMATIC, NORMAL INSPECTION, NORMOCEPHALIC - Eye Exam Eye Exam: EOMI, Normal appearance, PERRL Pupil Exam: NORMAL ACCOMODATION, PERRL - ENT Exam ENT Exam: Mucous Membranes Moist - Respiratory Exam Respiratory Exam: Clear to PA & Lateral, NORMAL BREATHING PATTERN - Cardiovascular Exam Cardiovascular Exam: REGULAR RHYTHM, +S1, +S2 - GI/Abdominal Exam GI & Abdominal Exam: Normal Bowel Sounds - Neurological Exam Neurological exam: Alert, CN II-XII Intact, Normal Gait, Oriented x3, Reflexes Normal - Psychiatric Exam Psychiatric exam: Normal Affect, Normal Mood Discharge Plan - Follow Up Plan Condition: FAIR Disposition: HOME/ ROUTINE Instructions: Iron Supplements (By mouth), Pantoprazole (By mouth), Gastritis ( DC), Gastrointestinal Bleeding (DC), Hemorrhoids (DC), Heart Healthy Diet (DC) Additional Instructions: follow up with me in 1 wk Referrals: Clyde Braga MD [Staff Provider] -
--- NOTE | 2017-06-06 11:33 | CARD ---
APPROVED REPORT EKG Measurement Heart [id number] [id number] <Conclusion> Normal sinus rhythm Left axis deviation Minimal voltage criteria for LVH, may be normal variant T wave abnormality, consider inferior ischemia T wave abnormality, consider anterolateral ischemia Abnormal ECG
== END 2017-06-05 20:16 | disposition home or self-care (01) | DRG 392 ==
LOC: C.ER 08:38 → C.9E 10:10 → C.6T 14:20
PROVIDERS: ADMIT Internal Medicine; ATTEND Internal Medicine
PROC: 0DBM8ZX Excision of Descending Colon, Via Natural or Artificial Opening Endoscopic, Diagnostic (ICD-10-PCS; 2017-06-03)
PROC: 0DB98ZX Excision of Duodenum, Via Natural or Artificial Opening Endoscopic, Diagnostic (ICD-10-PCS; principal; 2017-06-03 07:30)
PROC: 0DB68ZX Excision of Stomach, Via Natural or Artificial Opening Endoscopic, Diagnostic (ICD-10-PCS; 2017-06-03 07:30)
DX: K29.70 Gastritis, unspecified, without bleeding (principal); D64.9 Anemia, unspecified; C50.919 Malignant neoplasm of unspecified site of unspecified female breast; J44.9 Chronic obstructive pulmonary disease, unspecified; E87.6 Hypokalemia; H40.9 Unspecified glaucoma; I10 Essential (primary) hypertension; K29.80 Duodenitis without bleeding; K57.90 Diverticulosis of intestine, part unspecified, without perforation or abscess without bleeding; K64.8 Other hemorrhoids; K44.9 Diaphragmatic hernia without obstruction or gangrene; S50.10XA Contusion of unspecified forearm, initial encounter; K64.4 Residual hemorrhoidal skin tags

== ENCOUNTER 2018-07-27 07:53 | Outpatient (CLI) | payer MEDICARE, MEDICAID | END 2018-07-27 07:54 | disposition home or self-care (01) | LOC: C.CTH 07:53 | DX: J91.8 Pleural effusion in other conditions classified elsewhere (principal) ==

== ENCOUNTER 2018-08-07 11:15 | Outpatient (CLI) | payer MEDICARE, MEDICAID | END 2018-08-07 11:16 | disposition home or self-care (01) | LOC: C.PAT 11:15 | DX: Z45.2 Encounter for adjustment and management of vascular access device (principal) ==

== ENCOUNTER 2018-08-13 07:40 | Day surgery (SDC) | payer MEDICARE, MEDICAID ==
[2018-08-07 12:06] VITALS: BMI 25.6
[2018-08-13] MEDS ORDERED: ceFAZolin 1 gm in NS 0 GM/0 ML BAG IVPB ONE (10:14)
[2018-08-13] MEDS ORDERED: Lidocaine Hydrochloride 10 ML INJ ONE (10:15)
[2018-08-13] MEDS ORDERED: HEPARIN-NS 5,000 UNITS/500 ML 0 UNIT/0 ML BAG IV ONE (10:15)
[2018-08-13] MEDS ORDERED: Midazolam 2 MG/2 ML VIAL ONE (10:24)
[2018-08-13] MEDS ORDERED: HYDROmorphone 0.5 mg/0.5 ml ISec IVP PRN (10:50)
--- NOTE | 2018-08-13 10:59 | PCM.SURG1 ---
Surgeon's Initial Post Op Note - Surgeon's Notes Surgeon: Dr. Garcia Assembly Leader: Dr. Steven PGY-3 Type of Anesthesia: IV Sedation Pre-Operative Diagnosis: Malfunctioning portacath Operative Findings: see operative report Post-Operative Diagnosis: Same Operation Performed: Removal of portacath Specimen/Specimens Removed: portacath Estimated Blood Loss: EBL {In ML}: 2 Blood Products Given: N/A Drains Used: No Drains Post-Op Condition: Good Date of Surgery/Procedure: 08/13/18 Time of Surgery/Procedure: 10:59
[2018-08-13 11:56] VITALS: RESP 18; TEMP 97.7
[2018-08-13 11:57] VITALS: BP 124/64; PULSE 77; O2SAT 97
--- NOTE | 2018-08-13 20:54 | OP ---
PROCEDURE DATE: 08/13/2018 PREOPERATIVE DIAGNOSIS: Unnecessary intravascular device, Port-A-Cath. POSTOPERATIVE DIAGNOSIS: Unnecessary intravascular device, Port-A-Cath. PROCEDURE CARRIED OUT: Removal of Port-A-Cath. SURGEON: Nicholas Blackwell Jr., MD. ANESTHESIA: Local. DESCRIPTION OF PROCEDURE: The patient was given local anesthesia. Then, an incision was made over the port, was removed. Hemostasis was obtained. The skin was closed with subcuticular closure and Dermabond. Blood loss for the procedure was 2 mL. Operation carried out was removal of Port-A-Cath, left chest wall. The port was removed entirely and it was discarded and not sent for pathological examination. Nicholas Blackwell Jr., MD
== END 2018-08-13 12:08 | disposition home or self-care (01) ==
LOC: C.SDS 07:40
PROVIDERS: ATTEND Surgery Vascular Surgery
DX: Z45.2 Encounter for adjustment and management of vascular access device (principal)
CPT/HCPCS: 36590; J2250; J3010